=== PATIENT | male | born 1980 | race Caucasian/White ===

== ENCOUNTER 2017-02-24 18:02 | Emergency (ER) | payer BC ==
[~2017-02-24] VITALS: Ht 175.3 cm; Wt 112.6 kg
[~2017-02-24 18:02] MED LIST: BENICAR5 MG PO; FISH OIL 1,4001 EACH PO; MULTIVITAMIN1 EAC2 PO; VITAMIN D2000 UNIT PO
[2017-02-24 20:33] LABS: HEMATOCRIT 40.3 % (38.0-50.0); MCHC 35.5 G/DL (30.0-36.0); MCV 87.4 FL (86-99); MEAN PLAT.VOLUME 10.4 uM^3 (9.0-12.4); PLATELET COUNT 162 K/uL (156-360); RBC DIS.WIDTH-CV 13.2 % (11.8-14.6); RBC DIS.WIDTH-SD 42.6 % (39-53); RED BLOOD COUNT 4.61 M/uL (4.00-5.50); WHITE BLOOD COUNT 6.1 K/uL (4.1-10.2)
[2017-02-24] MEDS ORDERED: XARELTO15 MG PO (20:35)
[2017-02-24 20:44] LABS: INTER. NORMALIZED RATIO 1.1; PROTHROMBIN TIME 11.3 (9.2-11.2); PTT 28.1 (25-32)
[2017-02-24 21:07] LABS: CHLORIDE 108 mEq/L (99-109); POTASSIUM 3.5 mEq/L (3.7-5.4); SODIUM 141 mEq/L (136-147)
[2017-02-24 21:08] LABS: GLUCOSE 80 mg/dL (70-99)
[2017-02-24 21:10] LABS: ANION GAP 9 MEQ/L (2-14)
[2017-02-24 21:12] LABS: GFR ESTIMATE (CALCULATED) > 59 mL/min/
[2017-02-24 21:13] LABS: UREA NITROGEN (BUN) 12 mg/dL (9-23)
[2017-02-24 21:26] VITALS: BP 128/61
== END 2017-02-24 21:26 | disposition home or self-care (01) ==
LOC: EME 18:02
PROVIDERS: Physician Assistant
DX: I82.441 Acute embolism and thrombosis of right tibial vein (principal); I10 Essential (primary) hypertension
CPT/HCPCS: 80048; 85027; 85610; 85730; 93971; 99281; 99284